=== PATIENT | female | born 2000 | race Caucasian/White ===

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

== ENCOUNTER → 2022-05-17 | Outpatient (CLI) | payer BC ==
--- NOTE | 2022-05-17 08:36 | CT ---
EXAMINATION TYPE: CT brain wo con DATE OF EXAM: 05/17/2022 COMPARISON: None available HISTORY: Headache and eye pain CT DLP: 1017.9 mGycm Automated exposure control for dose reduction was used. TECHNIQUE: CT scan of the brain is performed without IV contrast administration. FINDINGS: No acute intracranial hemorrhage. No gross acute cortical infarct. No midline shift, herniation or ve ntriculomegaly. Unremarkable shanks-white matter differentiation, basal cisterns, sella and CP angles. No gross space-o ccupying lesion, vasogenic edema or mass effect. Unremarkable orbits. Prominent nasopharyngeal soft tissue, please correlate clinically. Clear visuali zed paranasal sinuses and mastoid air cells. Unremarkable calvarial bones. IMPRESSION: No acute intracranial abnormality or gross space-occupying lesion by this nonenhanced CT scan. Prominent nasopharyngeal soft tissue, please correlate clinically. If headaches persist, further MRI assessment can be considered.
== END | disposition home or self-care (01) ==
LOC: RADCTMAIN 06:25
PROVIDERS: ATTEND Family Medicine
DX: R51.0 Headache with orthostatic component, not elsewhere classified (principal); H57.10 Ocular pain, unspecified eye
CPT/HCPCS: 70450